=== PATIENT | female | born 1980 | race American Indian/Alaskan Native ===

== ENCOUNTER 2016-09-22 10:29 | Outpatient (CLI) | payer OTHER ==
--- NOTE | 2016-09-22 11:25 | XRay Report ---
LUMBOSACRAL SPINE, 3 VIEWS: History: Back pain Findings: The vertebral bodies, disk spaces and posterior elements are intact. No compression deformity or malalignment. The SI joints are symmetric and unremarkable. Partial lumbarization of S1 is noted. Impression: Unremarkable lumbar spine exam.
== END 2016-09-22 10:30 | disposition home or self-care (01) ==
LOC: XRAY 10:29
PROVIDERS: ATTEND Internal Medicine
DX: F41.9 Anxiety disorder, unspecified (principal); G47.30 Sleep apnea, unspecified
CPT/HCPCS: 72100